=== PATIENT | male | born 1975 | race Caucasian/White ===

== ENCOUNTER 2017-03-02 22:00 | Inpatient (IN) | payer OTHER ==
--- NOTE | ~2017-03-02 | PA ---
Unit #: [id number] #: [id number] [facility]: [facility]CTOR [id number] [facility] [address] [place] [address] [id number] MR#: [id number] NAME: NOELLE PROCTOR. ROOM: P209 Age: 41 Sex: M Admission Date: 03/02/2017 : 1975 Date of Assessment: Attending Physician: Jessica Youssef M.D. Admitting Physician: Jessica Youssef M.D. PSYCHIATRIC ASSESSMENT IDENTIFYING DATA Mr. Proctor is a 41-year-old , white male, who is a resident of [place], [place] and was self-referred to the hospital on a voluntary basis. CHIEF COMPLAINT "I've been using a gram of heroin daily." HISTORY OF PRESENT ILLNESS Mr. Proctor is a 41-year-old white male with history of substance abuse and mood disorder, who was self-referred to the hospital, stating that he has been using a gram of heroin daily since 11/2016, then 4 mg of Xanax daily since 11/2016 and has been drinking alcohol once or twice a week, and denies any alcohol use today. However, he stated "I've been having overdoses, where I'm flat lining." The patient reports that he has had four overdose attempts since 11/2016, and he has been sent to the hospital and stated "I'm ready to start working on my addiction and do a 12-step program." He reports increasing depression, anxiety, irritability, restlessness, feelings of hopelessness and helplessness, but denies any suicidal ideations, intent, or plan. SUBSTANCE ABUSE HISTORY The patient has extensive history of substance abuse and dependence, and reporting alcohol, cannabis, cocaine, acid, opioids, amphetamines and benzodiazepines, and currently alcohol and benzodiazepines appear to be his drug of choice as he reports that he has been drinking regularly and heavily and has been using 4 mg of Xanax on a daily basis. PAST PSYCHIATRIC HISTORY The patient has had a history of chemical dependency treatment at [facility] in the past under my care, and review of the medical records indicate that currently he is not active in any treatment program, is not seeing a psychiatrist, not taking any psychotropic medications. PAST MEDICAL HISTORY Hepatitis C. ALLERGIES No known medication allergies. PERSONAL AND SOCIAL HISTORY A 41-year-old white male, who reports that he is single, unemployed, and lives with a friend and has poor social support system. Unit #: [id number] #: [id number] Patient: NOELLE PROCTOR MENTAL STATUS EXAMINATION Middle-aged white male, who was casually dressed with fair personal hygiene, appears to be in no acute distress or discomfort. He was awake and alert on interaction with intact orientation to time, place, and person. His mood was anxious and depressed with a congruent affect. His speech was slow and goal directed. His thought processes were disorganized with some looseness of associations and flight of ideas and suicidal ideations. His insight and judgment remain significantly impaired. DIAGNOSTIC IMPRESSION Psychiatric: Alcohol dependence, moderate, in acute withdrawals; benzodiazepine dependence, moderate, in acute withdrawals; alcohol-induced mood disorder. Medical: None. Stressors: Moderate psychosocial stressors. TREATMENT PLAN 1. The patient has presented with history of substance abuse and mood disorder and has been decompensating and will need inpatient hospitalization for detoxification and safety and stabilization. We will start him on detox protocol. We will closely monitor for any worsening withdrawal symptoms. 2. Supportive therapy was provided to the patient. 3. Safe, structured, and nourishing environment will be provided. ESTIMATED LENGTH OF STAY 5 to 7 days. ABILITY TO HELP SELF Limited. WILLINGNESS TO HELP SELF The patient appears to be willing to help self. STRENGTHS 1. Communicative. 2. Cooperative. PROBLEMS 1. Chronic dysphoric symptoms. 2. Poor social support system. DISCHARGE CRITERIA This will be contingent upon the patient's ability to show resolution of his depression and anxiety, and his ability to go through detox without having any significant withdrawal symptoms. Dictated by... Raj Squires/moody TD: 03/03/2017 08:18 JOB #: [id number] Unit #: [id number] #: [id number] Patient: NOELLE PROCTOR PSYCHIATRIC ASSESSMENT Page 1 of 1 X Jessica Youssef MD PSYCHIATRIC ASSESSMENT
--- NOTE | ~2017-03-02 | PN ---
Unit #: [id number] #: [id number] Patient: NOELLE PROCTOR [id number] [facility] [address] [place] [address] [id number] I MR#: [id number] NAME: NOELLE PROCTOR. ROOM: P209 Age: 41 Sex: M Admission Date: 03/02/2017 : 1975 Attending Physician: Jessica Youssef M.D. Admitting Physician: Jessica Youssef M.D. Primary Care Physician: Primary Care Physician Bria KINCAID PROGRESS NOTES DATE 03/04/2017 DISCUSSION Mr. Proctor is a 41-year-old, white male with substance abuse and mood disorder who was seen today and chart was reviewed and case was discussed with the staff. He has been anxious, withdrawn and rather seclusive to himself. Meanwhile, he has been cooperative with treatment recommendations. He has been taking medications and tolerating them fairly well with no reported side effects. MENTAL STATUS EXAM Middle-aged white male who was casually dressed with fair personal hygiene, appears to be in no acute distress or discomfort. He was awake and alert on interaction with intact orientation. His mood was anxious with congruent affect. His speech was slow and goal directed. He denies any suicidal or homicidal ideation. His insight and judgement remains slightly impaired. TREATMENT PLAN 1. We will continue him on his current medications and treatment protocol. We will monitor his response to the medication and make further adjustments as needed. 2. We will continue to follow up. Dictated by... Raj Squires/carl TD: 03/07/2017 23:06 JOB #: [id number] Unit #: [id number] #: [id number] Patient: NOELLE PROCTORMERISSA PROGRESS NOTES Page 1 of 1 X Jessica Youssef MD PROGRESS NOTE
--- NOTE | ~2017-03-02 | HP ---
Unit #: [id number] #: [id number] Patient: BRADLEY ASH [id number] [place] [address] [id number] I MR#: [id number] NAME: BRADLEY ASH. ROOM: P209 Age: 41 Sex: M Admission Date: 03/02/2017 : 1975 Attending Physician: Jessica Youssef M.D. Admitting Physician: Jessica Youssef M.D. Primary Care Physician: Primary Care Physician No HISTORY AND PHYSICAL HISTORY OF PRESENT ILLNESS Bradley is a 41 year old admitted to [address] [place] [address] because of his continued illicit drug use. He has had numerous admissions to this facility for treatment of the same. PAST MEDICAL HISTORY 1. Long history of polysubstance abuse to include IV heroin. 2. Hepatitis C. a. He has completed treatment. 3. History of withdrawal seizures. PAST SURGICAL HISTORY Nothing reported ALLERGIES No known drug allergies. SOCIAL HISTORY Smokes one pack per day. Drinks alcohol on occasion and admits to a long history of illicit substance abuse to include IV heroin and benzodiazepines. FAMILY HISTORY Medically noncontributory. REVIEW OF SYSTEMS CONSTITUTIONAL: No fever or chills. HEENT: Denies any sore throat, ear pain or runny nose. CARDIOVASCULAR: Denies chest pain, irregular heart rhythm or palpitations. CHEST: Denies shortness of breath or cough. No hemoptysis. GASTROINTESTINAL: Denies nausea, vomiting, diarrhea or chronic constipation. ENDOCRINE: Denies history of increased thirst or urination. No recent significant weight loss or gain. GENITOURINARY: Denies dysuria, frequency, or hematuria. SKIN: Denies any rashes. HEMATOLOGIC: Denies history of increased bleeding or bruising. MUSCULOSKELETAL: Denies any hot, swollen joints. No generalized muscle pain. NEUROLOGIC: Denies problems with vision or speech. No frequent, severe headaches. No numbness, tingling or weakness in any extremities. Denies loss of bladder or bowel control. Unit #: [id number] #: [id number] Patient: BRADLEY ASH CURRENT MEDICATIONS Detox protocol PHYSICAL EXAMINATION GENERAL: Alert, well-nourished, in no apparent distress. VITAL SIGNS: Blood pressure 114/70, heart rate 86, respirations 16, temperature 98.6. WEIGHT: 189 pounds. HEIGHT: 5'7". SKIN: Warm and dry without rash or lesion. HEENT: Normocephalic. TMs not viewed. Oral and nasal passages clear. Conjunctivae clear. Pupils equal, round and reactive to light and accommodation. Extraocular movements intact. NECK: Supple without lymphadenopathy or thyromegaly. HEART: Regular rate and rhythm without murmur. LUNGS: Clear. ABDOMEN: Soft, nontender. : Not done. EXTREMITIES: No evidence of cyanosis, clubbing or edema. Moves all extremities without focal deficit. NEUROLOGICAL: Grossly within normal limits. Cranial Nerves: II: Visual gonzalez are intact. III, IV AND : Extraocular movements are intact. Pupils are equal, round and reactive to light. V: Facial sensation is grossly normal. VII: Facial movements and expression are normal. VIII: Auditory acuity grossly intact. IX, X: Uvula is midline. Phonation is normal. XI: Patient shrugs shoulders and turns head normally. XII: Tongue protrudes in the midline. Sensory and Motor Function: Sensory and motor sensation is grossly normal. Motor: moves all extremities well. Coordination: Gait is normal. Deep Tendon Reflexes: Intact. IMPRESSION Psychiatric admission RECOMMENDATIONS PSYCHIATRIC: Per psychiatrist. MEDICAL: I see no contraindications to participating in facility's activities. MEDICAL PROGNOSIS Good. MEDICAL CONDITION Stable. Dictated by... Anay Fontenot P.A.-C. for Raj Martin/carl Unit #: [id number] #: [id number] Patient: BRADLEY ASH TD: 03/03/2017 22:24 JOB #: [id number] HISTORY AND PHYSICAL Page 1 of 1 X Anay Fontenot HISTORY AND PHYSICAL
--- NOTE | ~2017-03-02 | PN ---
Unit #: [id number] #: [id number] Patient: NOELLE PROCTOR [id number] [facility] [address] [place] [address] [id number] I MR#: [id number] NAME: NOELLE PROCTOR. ROOM: P209 Age: 41 Sex: M Admission Date: 03/02/2017 : 1975 Attending Physician: Jessica Youssef M.D. Admitting Physician: Jessica Youssef M.D. Primary Care Physician: Primary Care Physician Bria KINCAID PROGRESS NOTES DATE 03/05/2017 DISCUSSION Mr. Proctor is a 41-year-old white male with opiate dependence and mood disorder who was seen today and chart was reviewed and case was discussed with the staff. He has been anxious, withdrawn and rather seclusive to himself though appears to be doing somewhat better and coming out of the detox without any complications. He has been taking the medications and tolerating them fairly well with no reported side effects. MENTAL STATUS EXAMINATION Middle-aged white male who was casually dressed with fair personal hygiene and appears to be in no acute distress or discomfort. He was awake and alert on interaction with intact orientation. His mood was anxious with congruent affect. He denies any suicidal or homicidal ideations. His insight and judgement remains slightly impaired. TREATMENT PLAN 1. Will continue on his current treatment protocol. Will monitor his response to the medications and make further adjustments as needed. 2. Will continue to follow up. Dictated by... Raj Squires/maulik TD: 03/08/2017 09:17 JOB #: [id number] Unit #: [id number] #: [id number] Patient: NOELLE PROCTOR CODI PROGRESS NOTES Page 1 of 1 X Jessica Youssef MD PROGRESS NOTE
--- NOTE | ~2017-03-02 | DS ---
Unit #: [id number] #: [id number] Patient: NOELLE ASH [id number] [facility] [address] [place] [address] [id number] I MR#: [id number] NAME: NOELLE ASH. ROOM: P209 Age: 41 Sex: M Admission Date: 03/02/2017 : 1975 Discharge Date: 03/06/2017 Attending Physician: Jessica Youssef M.D. DISCHARGE SUMMARY REASON FOR ADMISSION Detox. DIAGNOSTIC STUDIES LABORATORY RESULTS: Remarkable for urine drug screen positive for opioid. HOSPITAL COURSE The patient was admitted to inpatient unit on 03/02/2017 and discharged on 03/06/2017. The patient was treated with group therapy, individual therapy, medication management, detox protocol. The patient responded well with the above modalities of treatment. The patient requested to be discharged. The patient was not suicidal or homicidal or any psychotic symptom. Subsequently, the patient was discharged with a plan to follow up in outpatient program. DISCHARGE MEDICATIONS None. DISCHARGE DIAGNOSES Psychiatric: 1. Opioid use disorder, severe. 2. Alcohol use disorder, moderate. 3. Mood disorder, not otherwise specified. Secondary diagnosis: Deferred. Medical diagnosis: None. Stressors: Psychosocial stressors. DISCHARGE INSTRUCTIONS The patient to follow up in outpatient clinic as per social and political studies professor. CONDITION ON DISCHARGE The patient was pleasant and cooperative. Denied any suicidal ideation or any psychotic symptom. PROGNOSIS Guarded. DIET AND ACTIVITY As tolerated. Unit #: [id number] #: [id number] Patient: NOELLE ASH Dictated by... Raj Connor/moody TD: 03/06/2017 23:41 JOB #: [id number] DISCHARGE SUMMARY Page 1 of 1 X Michael Singleton MD X DISCHARGE SUMMARY
[2017-03-03 09:33] LABS: BASOPHIL% 0.7 % (0-2.5); EOSINOPHIL# 0.3 X10e3 (0-0.7); EOSINOPHIL% 4.4 % (0.0-7.0); HEMATOCRIT 40.2 % (38.0-50.0); HEMOGLOBIN 13.2 gm/dL (13.0-16.0); LYMPHOCYTE# 2.2 X10e3 (1.0-3.5); LYMPHOCYTE% 31.3 % (17.0-45.0); MEAN CELL VOLUME 89.8 FL (83-96); MEAN CORPUSCULAR HEMOGLOBIN 29.4 PG (28-34); MEAN CORPUSCULAR HGB CONC 32.8 g/dL (30-36); MEAN PLATELET VOLUME 7.8 FL (6.5-11.5); MONOCYTE# 0.7 X10e3 (0-1.0); MONOCYTE% 9.6 % (3.0-12.0); NEUTROPHIL# 3.8 X10e3 (1.5-7.1); PLATELET COUNT 275 X10e3 (140-420); RED BLOOD COUNT 4.48 X10e (3.90-5.60); RED CELL DISTRIBUTION WIDTH 13.5 % (11.0-15.5)
[2017-03-03 09:34] LABS: DIFF IND NO
[2017-03-03 09:44] LABS: ALBUMIN SERUM 3.1 g/dL (3.5-5.0); BILIRUBIN,TOTAL 0.1 mg/dL (0.2-2.0); BUN/CREATININE RATIO 21.42; CALCIUM SERUM 8.3 mg/dL (8.4-10.2); CREATININE SERUM 0.7 mg/dL (0.6-1.4); GLOM FILT RATE Estimated 118.1 mL/min (>60); POTASSIUM 4.1 mmol/L (3.5-5.1); PROTEIN TOTAL SERUM 5.8 g/dL (6.0-8.3)
[2017-03-04 10:32] LABS: URINE APPEARANCE CLEAR; URINE BILIRUBIN NEG (NEG); URINE BLOOD NEG (NEG); URINE COLOR YELLOW; URINE GLUCOSE NEG (NEG); URINE KETONE NEG (NEG); URINE LEUKOCYTE ESTERASE NEG (NEG); URINE NITRATE NEG (NEG); URINE PH 7.5 (5-8); URINE PROTEIN NEG (NEG); URINE SPECIFIC GRAVITY 1.008 (1.003-1.035)
[2017-03-04 10:53] LABS: AMPHETAMINE NEG (NEG); BARBITURATES NEG (NEG); BENZODIAZEPINES NEG (NEG); COCAINE NEG (NEG); MARIJUANA NEG (NEG); OPIATES POS (NEG); TRICYCLIC ANTIDEPRESSANTS NEG (NEG); U METHADONE NEG (NEG)
== END 2017-03-06 11:05 | disposition home or self-care (01) | DRG 897 ==
LOC: P2S 22:00
PROVIDERS: Psychiatry & Neurology Psychiatry
PROC: HZ2ZZZZ Detoxification Services for Substance Abuse Treatment (ICD-10-PCS; principal; 2017-03-02)
DX: F10.239 Alcohol dependence with withdrawal, unspecified (principal); F10.24 Alcohol dependence with alcohol-induced mood disorder; F13.239 Sedative, hypnotic or anxiolytic dependence with withdrawal, unspecified; F41.9 Anxiety disorder, unspecified; B19.20 Unspecified viral hepatitis C without hepatic coma; F17.210 Nicotine dependence, cigarettes, uncomplicated; F39 Unspecified mood [affective] disorder
CPT/HCPCS: 80053; 80307; 81003; 85025; 86592